=== PATIENT | female | born 1985 | race African-American/Black ===

== ENCOUNTER 2019-05-04 15:26 | Emergency (ER) | payer OTHER ==
[~2019-05-04] VITALS: Ht 160 cm; Wt 83.5 kg
[~2019-05-04 15:26] MED LIST: BIRTH CONTROL; IBUPROFEN 800800 MG PO; MEDROLDOSEPACK PO; OSELB75 PO; TRINATE TABLET1 TAB; ZOFRAN ODT4 MG PO
[2019-05-04 16:47] LABS: URINE BILIRUBIN NEGATIVE (Negative); URINE BLOOD 3+ (Negative); URINE CLARITY CLEAR; URINE COLOR YELLOW; URINE GLUCOSE-RANDOM NEGATIVE (Negative); URINE KETONES NEGATIVE (Negative); URINE NITRITE-REFLEX NEGATIVE (Negative); URINE PROTEIN NEGATIVE (Negative); URINE SPECIFIC GRAVITY 1.025 (1.005-1.030); URINE UROBILINOGEN 0.2 E.U./dl (0.2-1.0)
[2019-05-04 16:48] LABS: URINE LEUKOCYTES-REFLEX 2+ (Negative)
[2019-05-04 16:52] LABS: ABSOLUTE LYMPHOCYTES 0.9 thou/uL (0.8-5.3); ABSOLUTE MONOCYTES 0.4 thou/uL (0.0-1.2); BASOPHILS 0.2 %; EOSINOPHILS 0.6 %; HEMATOCRIT 38.1 % (37.0-47.0); HEMOGLOBIN 12.5 gm/dL (12.0-15.0); LYMPHOCYTES 10.3 %; MCH 24.1 pg (26.0-34.0); MCHC 32.7 g/dL (28.0-37.0); MCV 73.5 fL (80.0-100.0); MONOCYTES 4.5 %; MPV 7.9 fl. (7.2-11.1); NUCLEATED RBCS 0 /100WBC; PLATELET COUNT* 300 thou/uL (150-400); POLYS 84.4 %; RBC 5.19 mil/uL (4.20-5.00); RDW-CV 15.3 % (10.5-14.5); WBC 8.3 thou/uL (4.0-11.0)
[2019-05-04 16:53] LABS: INFLUENZA A ANTIGEN Negative (Negative); INFLUENZA B ANTIGEN Negative (Negative)
[2019-05-04 16:56] LABS: CREATININE 0.6 mg/dL (0.6-1.3); POTASSIUM 3.6 mmol/L (3.5-5.1)
[2019-05-04 17:01] LABS: ALBUMIN 3.3 g/dL (3.4-5.0); TOTAL BILIRUBIN 0.6 mg/dL (<0.1-1.0); TOTAL PROTEIN 7.6 g/dL (6.4-8.2)
[2019-05-04 17:05] LABS: MUCUS None Seen strn/LPF (None Seen); SQUAMOUS 0-3 Few /LPF (0-3); URINE RBC >20 Many /HPF (0-2)
[2019-05-04 17:06] LABS: BACTERIA-REFLEX 1-9 Few /HPF (None Seen); CASTS None Seen /LPF (None Seen); CRYSTALS None Seen /LPF (None Seen); URINE WBC-REFLEX 6-15 Few /HPF (0-5)
[2019-05-04] MEDS ORDERED: DOXYCYCLINE 10100 MG PO (17:55)
[2019-05-04] MEDS ORDERED: VENTOLIN HFA 1818 GM INH ×2 (17:55→18:06)
[2019-05-04] MEDS ORDERED: CEFDINIR300 MG PO (18:06)
[2019-05-04 18:15] VITALS: BP 100/44
== END 2019-05-04 18:16 | disposition home or self-care (01) ==
LOC: M.ERS 15:26
PROVIDERS: Nurse Practitioner Family
DX: J18.9 Pneumonia, unspecified organism (principal); R19.7 Diarrhea, unspecified; Z88.0 Allergy status to penicillin

== ENCOUNTER → 2020-12-10 | Emergency (ER) | payer OTHER ==
[~2020-12-10] VITALS: Ht 160 cm; Wt 83.9 kg
[~2020-12-10] MED LIST changes: +CEFDINIR300 MG PO; +DOXYCYCLINE 10100 MG PO; +PERCOCET 7.5-31 EAC1 PO; +VENTOLIN HFA 1818 GM INH
[2020-12-10 19:44] VITALS: BP 150/70
== END ==
LOC: M.ERS 18:07
DX: M25.462 Effusion, left knee (principal); Z88.0 Allergy status to penicillin